=== PATIENT | female | born 2000 | race Caucasian/White ===

== ENCOUNTER 2018-09-13 14:44 | Emergency (ER) | payer OTHER ==
[2018-09-13] MEDS ORDERED: Acetaminophen 500 MG TAB ONE (15:28)
[2018-09-13 15:36] LABS: Bilirubin Negative (Negative); Blood, Urine Small (Negative); Clarity Cloudy (Clear); Glucose, Urine (Dipstick) >=1000 mg/dL (Negative); Leukocyte Small (Negative); Nitrite Positive (Negative); Protein, Urine (Dipstick) 30 mg/dL (Neg-Trace); Urobilinogen 0.2 mg/dL (0.2-1.0)
[2018-09-13 15:40] LABS: #Eosinphils 0.1 thou/uL (0.0-0.7); #Lymphocytes 1.5 thou/uL (1.20-3.40); #Monocytes 0.4 thou/uL (0.11-0.59); #Neutrophils 9.3 thou/uL (1.40-6.50); %Basophils 0.2 % (0.0-1.0); %Eosinophils 1.1 % (0.0-10.0); %Monocytes 3.4 % (0.0-4.0); %Neutrophils 82.2 % (31.0-61.0); Hemoglobin 10.3 g/dL (12.0-16.0); Mean Corpuscular HGB CONC 33.2 g/dL (32.0-36.0); Mean Corpuscular Hemoglobin 28.8 pg (25.0-35.0); Platelet Count 231 thou/uL (130-400); RBC Distribution Width 13.3 % (11.5-14.5); Red Blood Cell (RBC) Count 3.57 mill/uL (4.00-5.20); White Blood Cell (WBC) Count 11.3 thou/uL (4.8-10.8)
[2018-09-13 15:41] LABS: Squamous Epithelial 0-3 HPF (0-3)
[2018-09-13 15:42] LABS: Bacteria/HPF 4+ HPF (None Seen)
[2018-09-13 15:50] LABS: ALT (SGPT) 11 U/L (8-55); AST (SGOT) 7 U/L (5-34); Alkaline Phosphatase 122 U/L (40-150); Anion Gap 13 mmol/L (10-20); BUN (Urea Nitrogen) 9 mg/dL (7.0-18.7); Bilirubin, Total 0.2 mg/dL (0.2-1.2); Calc. Creatinine Clearance 0 mL/min (70-130); Calcium 8.8 mg/dL (7.8-10.44); Carbon Dioxide 25 mmol/L (22-29); Chloride 105 mmol/L (98-107); Estimated GFR-MDRD Greater than 90; Globulin 3.4 g/dL (2.4-3.5); Glucose 268 mg/dL (70-105); Potassium 3.7 mmol/L (3.5-5.1); Protein, Total 6.4 g/dL (6.0-8.3); Sodium 139 mmol/L (136-145)
[2018-09-13] MEDS ORDERED: cefTRIAXone\\ROCEPHIN 1 GM VIAL ONE (16:13)
[2018-09-13] MEDS ORDERED: Sodium Chloride 0.9% 1,000 ML ONE (16:14)
== END 2018-09-13 17:07 | disposition short-term general hospital (02) ==
LOC: MADERS 14:44
DX: O23.02 Infections of kidney in pregnancy, second trimester (principal); N12 Tubulo-interstitial nephritis, not specified as acute or chronic; O24.012 Pre-existing type 1 diabetes mellitus, in pregnancy, second trimester; E10.9 Type 1 diabetes mellitus without complications; O99.282 Endocrine, nutritional and metabolic diseases complicating pregnancy, second trimester; E03.9 Hypothyroidism, unspecified; E78.5 Hyperlipidemia, unspecified; Z87.891 Personal history of nicotine dependence; Z79.899 Other long term (current) drug therapy; Z3A.23 23 weeks gestation of pregnancy
CPT/HCPCS: 36415; 36416; 80053; 81003; 81015; 85025; 87077; 87086; 87186; 96365; J0696; J7050

== ENCOUNTER 2019-05-06 11:19 | Emergency (ER) | payer OTHER, SELFPAY | END 2019-05-06 12:15 | disposition home or self-care (01) | LOC: MADERS 11:19 | DX: S00.411A Abrasion of right ear, initial encounter (principal); H66.93 Otitis media, unspecified, bilateral; E03.9 Hypothyroidism, unspecified; E10.9 Type 1 diabetes mellitus without complications; E78.5 Hyperlipidemia, unspecified; F17.210 Nicotine dependence, cigarettes, uncomplicated; X58.XXXA Exposure to other specified factors, initial encounter | CPT/HCPCS: 99282 ==